=== PATIENT | male | born 1990 | race Hispanic/Latino ===

== ENCOUNTER 2019-05-23 15:42 | Emergency (ER) | payer SELFPAY ==
--- NOTE | 2019-05-23 16:18 | Emergency Department Report ---
Chief Complaint: Dental/Oral Stated Complaint: TOOTHACHE Time Seen by Provider: 05/23/19 16:08 - HPI History of Present Illness: This is a 28-year-old male that presents to the ER with left side dental pain for 1 week. Reports gingival swelling started yesterday. Currently using NSAIDs with minimal symptomatic relief. Denies difficulty swallowing, eating, facial swelling, following up with a dentist, fever, chills, headache, nausea, vomiting, chest pain or SOB. - ROS Review of Systems: CONSTITUTIONAL: Denies fever and chills. Denies weight loss. HEENT: Admits dental pain. Denies changes in vision and hearing. RESPIRATORY: Denies congestion. Denies SOB. CV: Denies palpitations and CP. GI: Denies abdominal pain, nausea, vomiting and diarrhea. MSK: Denies myalgia and joint pain. SKIN: Denies rash and pruritus. NEUROLOGICAL: Denies headache and syncope. PSYCHIATRIC: Denies recent changes in mood. Denies anxiety and depression. - Exam Vital Signs: Vital Signs 05/23/19 16:08 Temperature 98.3 F Pulse Rate 60 Respiratory 18 Rate Blood Pressure 121/79 O2 Sat by Pulse 98 Oximetry Physical Exam: GENERAL: Alert and oriented x 3. No acute distress. Well-nourished. EYES: EOMI. HENT: Dark black dental caries center #18 with gingival swelling, tenderness. Moist mucous membranes. LUNGS: Clear to auscultation bilaterally. No accessory muscle use. CARDIOVASCULAR: Regular rate and rhythm. No murmur. No JVD. ABDOMEN: Soft, non-tender and non-distended. EXTREMITIES: No edema. Non-tender. SKIN: No rashes or lesions. Warm. NEUROLOGIC: No focal neurological deficits. CN II-XII grossly intact, but not individually tested. PSYCHIATRIC: Cooperative. Appropriate mood and affect. MSE screening note: Focused history and physical exam performed. Due to findings the following was ordered: ED Medical Decision Making - Medical Decision Making This patient was examined by this provider. Dental pain #18 with gingival swelling. Patient is discharged with amoxicillin, tramadol, and naprosyn. Given list of dental clinics for follow up. At time of discharge, the patient does not seem toxic or ill in appearance. No acute signs of distress noted. Patient agrees to discharge treatment plan of care. No further questions noted by the patient. ED Disposition for MSE Clinical Impression: Dental caries, Toothache Disposition: DC- TO HOME OR SELFCARE Is pt being admited?: No Does the pt Need Aspirin: No Condition: Stable Instructions: Dental Caries (ED), Toothache (ED) Additional Instructions: Follow up with a dentist from the dental list provided for further care. Prescriptions: Naproxen [Naprosyn] 500 mg PO BID PRN #20 tablet PRN Reason: Pain , Severe (7-10) Amoxicillin [Trimox CAP] 500 mg PO BID #14 capsule traMADol [Ultram 50 MG tab] 50 mg PO Q6HR PRN #10 tablet PRN Reason: Pain Referrals: [facility] [Outside] - 3-5 Days [facility] [Outside] - 3-5 Days [facility] [Outside] - 3-5 Days Forms: Work/School Release Form(ED) Time of Disposition: 16:37
[2019-05-23 16:40] VITALS: BP 126/75
== END 2019-05-23 16:40 | disposition home or self-care (01) ==
LOC: ED 15:42
DX: K02.9 Dental caries, unspecified (principal); K08.89 Other specified disorders of teeth and supporting structures